=== PATIENT | male | born 1975 | race Caucasian/White ===

== ENCOUNTER 2019-04-06 13:09 | Inpatient (IN) ==
[2019-04-06] MEDS ORDERED: 0.9 % Sodium Chloride 1,000 ML IVC ONE (13:20)
[2019-04-06] MEDS ORDERED: 0.9 % Sodium Chloride 1,000 ML ONE ×3 (13:22→13:42)
[2019-04-06] MEDS ORDERED: *HR* Heparin 5,000 UNIT/ML VIAL ONE (13:22)
[2019-04-06] MEDS ORDERED: *HR* Ticagrelor 90 MG TABLET ONE ×2 (13:22→14:21)
[2019-04-06] MEDS ORDERED: Aspirin 81 MG TAB.CHEW ONE (13:22)
[2019-04-06] MEDS: Aspirin 81 MG TAB.CHEW PO ONE ×2 (13:24→13:34)
[2019-04-06] MEDS ORDERED: *HR* Heparin 5,000 UNIT/ML VIAL IVP ONE (13:27)
[2019-04-06] MEDS: Nitroglycerin 0.4 MG TAB.SUBL SL PRN ×2 (13:27→13:38)
[2019-04-06] MEDS ORDERED: *HR* Heparin 5,000 UNIT/ML VIAL IVP PRN ×2 (13:27)
[2019-04-06] MEDS ORDERED: Heparin 25,000 UNIT/250 ML D5W 25,000 UNIT/250 ML IV.SOLN IVC SCH (13:30)
[2019-04-06] MEDS ORDERED: Heparin 1,000 UNITS/500 mL 500 ML ONE (13:33)
[2019-04-06] MEDS ORDERED: *HR* Heparin 10,000 UNIT/10 ML VIAL ONE ×2 (13:33→14:08)
[2019-04-06] MEDS ORDERED: ISOVUE-370 200 ML INFUS..BTL ONE (13:33)
[2019-04-06] MEDS ORDERED: Nitroglycerin 1,000 MCG/10 ML VIAL IV ONE (13:34)
[2019-04-06 13:35] LABS: Basophils # 0.1 K/mcL (0.0-0.2); Basophils % 0.6 %; Eosinophils # 0.3 K/mcL (0.0-0.6); Eosinophils % 3.1 %; Hematocrit 51.4 % (37.5-50.1); Hemoglobin 17.8 g/dL (12.9-16.9); Immature Granulocytes % 0.6 % (0-4); Lymphocytes # 2.6 K/mcL (0.6-4.6); Lymphocytes % 26.6 %; Mean Corpuscular HGB Conc 34.6 g/dL (31.6-35.5); Mean Corpuscular Hemoglobin 29.5 pg (28.0-33.3); Mean Corpuscular Volume 85.1 fL (83.0-100.0); Mean Platelet Volume 9.9 fL (9.4-12.4); Monocytes # 0.9 K/mcL (0.0-1.3); Monocytes % 9.3 %; Neutrophils # 5.9 K/mcL (1.6-8.9); Platelet Count 228 K/mcL (140-400); Red Blood Count 6.04 M/mcL (4.19-5.50); Red Cell Distribution Width 13.3 % (11.5-14.5); Segmented Neutrophils % 59.8 %; White Blood Count 9.8 K/mcL (4.3-11.1)
[2019-04-06 13:41] LABS: INR 0.9; Prothrombin Time 10.6 Seconds (9.4-12.1)
[2019-04-06 13:42] LABS: Activated Partial Thrombo Time 31.8 Seconds (26.0-36.0)
[2019-04-06] MEDS ORDERED: Verapamil 5 MG/2 ML VIAL ONE (13:42)
[2019-04-06] MEDS ORDERED: *HR* Midazolam HCl 2 MG/2 ML VIAL ONE (13:50)
[2019-04-06] MEDS ORDERED: *HR* FentaNYL (PF) 100 MCG/2 ML VIAL ONE (13:50)
[2019-04-06 13:56] LABS: D-Dimer < 215 ng/mLFEU (0-500)
[2019-04-06 13:59] LABS: BUN/Creatinine Ratio 12 (6-26); Blood Urea Nitrogen 11 mg/dL (6-20); Calcium 10.4 mg/dL (8.6-10.3); Carbon Dioxide 28 mEq/L (23-29); Chloride 102 mEq/L (98-107); Glucose 166 mg/dL (70-105); Magnesium 1.9 mg/dL (1.6-2.6); Osmolality,Calculated 289 (280-300); Potassium 4.1 mEq/L (3.5-5.1); Sodium 138 mEq/L (136-145); eGFR For African Americans > 60 (> 60); eGFR For Non-African Americans > 60 (> 60)
[2019-04-06 14:03] LABS: Troponin I 0.59 ng/mL (< 0.04)
[2019-04-06] MEDS ORDERED: *HR* Adenosine 6 MG/2 ML VIAL IVP ONE (14:36)
[2019-04-06] MEDS ORDERED: niCARdipine 20 MG/200 ML MLS IVC ONE (14:37)
[2019-04-06] MEDS ORDERED: Ondansetron 4 MG/2 ML VIAL IVP PRN (15:29)
[2019-04-06] MEDS ORDERED: D5% in Water 1,000 ML IVC PRN (15:50)
[2019-04-06] MEDS ORDERED: *HR* Dextrose 50 % in Water (Syg) 50 ML SYRINGE IVP PRN (15:50)
[2019-04-06] MEDS ORDERED: Dextrose Gel 15 GM/37.5 ML TUBE PO PRN ×2 (15:50)
[2019-04-06] MEDS: Insulin LISPRO 300 UNITS/3 ML VIAL SQ SCH (16:09)
[2019-04-06] MEDS ORDERED: Insulin LISPRO 300 UNITS/3 ML VIAL SQ SCH (21:00)
[2019-04-06] MEDS: *HR* Ticagrelor 90 MG TABLET PO SCH (21:05)
[2019-04-07 05:00] LABS: Basophils % 0.4 %; Eosinophils # 0.3 K/mcL (0.0-0.6); Eosinophils % 3.5 %; Hematocrit 50.4 % (37.5-50.1); Hemoglobin 17.1 g/dL (12.9-16.9); Immature Granulocytes % 0.3 % (0-4); Lymphocytes # 1.9 K/mcL (0.6-4.6); Lymphocytes % 19.9 %; Mean Corpuscular HGB Conc 33.9 g/dL (31.6-35.5); Mean Corpuscular Hemoglobin 29.7 pg (28.0-33.3); Mean Corpuscular Volume 87.7 fL (83.0-100.0); Mean Platelet Volume 10.2 fL (9.4-12.4); Monocytes % 10.3 %; Neutrophils # 6.4 K/mcL (1.6-8.9); Platelet Count 189 K/mcL (140-400); Red Blood Count 5.75 M/mcL (4.19-5.50); Red Cell Distribution Width 13.4 % (11.5-14.5); Segmented Neutrophils % 65.6 %; White Blood Count 9.8 K/mcL (4.3-11.1)
[2019-04-07 05:21] LABS: Troponin I 8.23 ng/mL (< 0.04)
[2019-04-07 05:27] LABS: BUN/Creatinine Ratio 12 (6-26); Blood Urea Nitrogen 9 mg/dL (6-20); Calcium 9.7 mg/dL (8.6-10.3); Carbon Dioxide 22 mEq/L (23-29); Chloride 103 mEq/L (98-107); Glucose 124 mg/dL (70-105); Magnesium 1.7 mg/dL (1.6-2.6); Osmolality,Calculated 282 (280-300); Potassium 3.9 mEq/L (3.5-5.1); Sodium 136 mEq/L (136-145); eGFR For African Americans > 60 (> 60); eGFR For Non-African Americans > 60 (> 60)
[2019-04-07] MEDS: Insulin LISPRO 300 UNITS/3 ML VIAL SQ SCH ×3 (07:53→17:12)
[2019-04-07] MEDS ORDERED: Aspirin 81 MG TAB.CHEW PO SCH (09:00)
[2019-04-07] MEDS: *HR* Ticagrelor 90 MG TABLET PO SCH ×2 (09:26→20:36)
[2019-04-07] MEDS ORDERED: D5% in Water 1,000 ML IVC PRN (09:31)
[2019-04-07] MEDS ORDERED: Nitroglycerin 0.4 MG TAB.SUBL SL PRN (09:31)
[2019-04-07] MEDS ORDERED: Ondansetron 4 MG/2 ML VIAL IVP PRN (09:31)
[2019-04-07] MEDS ORDERED: Loratadine 10 MG TABLET PO PRN (09:31)
[2019-04-07] MEDS ORDERED: *HR* Dextrose 50 % in Water (Syg) 50 ML SYRINGE IVP PRN (09:31)
[2019-04-07] MEDS ORDERED: Dextrose Gel 15 GM/37.5 ML TUBE PO PRN ×2 (09:31)
[2019-04-07] MEDS ORDERED: Insulin LISPRO 300 UNITS/3 ML VIAL SQ SCH (21:00)
[2019-04-08] MEDS: Insulin LISPRO 300 UNITS/3 ML VIAL SQ SCH ×2 (08:07→12:17)
[2019-04-08] MEDS: *HR* Ticagrelor 90 MG TABLET PO SCH (08:10)
[2019-04-08] MEDS ORDERED: Aspirin 81 MG TAB.CHEW PO SCH (09:00)
[2019-04-08 11:59] VITALS: BP 147/89
== END 2019-04-08 14:01 | disposition home or self-care (01) | DRG 247 ==
LOC: ICNU 13:09 → EMEROOARM 13:09 → OBSVTOIN 13:49 → ICNU 13:52 → 2NNU 04-07 11:49
PROVIDERS: ADMIT Internal Medicine Interventional Cardiology; ATTEND Internal Medicine Interventional Cardiology

== ENCOUNTER 2020-11-12 11:03 | Observation (INO) ==
[2020-11-12 12:06] LABS: Basophils # 0.1 K/mcL (0.0-0.2); Basophils % 0.8 %; Eosinophils # 0.2 K/mcL (0.0-0.6); Eosinophils % 2.2 %; Hematocrit 54.2 % (37.5-50.1); Hemoglobin 18.9 g/dL (12.9-16.9); Immature Granulocytes % 0.5 % (0-4); Lymphocytes # 2.2 K/mcL (0.6-4.6); Lymphocytes % 25.8 %; Mean Corpuscular HGB Conc 34.9 g/dL (31.6-35.5); Mean Corpuscular Hemoglobin 29.8 pg (28.0-33.3); Mean Corpuscular Volume 85.5 fL (83.0-100.0); Monocytes # 0.9 K/mcL (0.0-1.3); Monocytes % 10.8 %; Neutrophils # 5.2 K/mcL (1.6-8.9); Platelet Count 228 K/mcL (140-400); Red Blood Count 6.34 M/mcL (4.19-5.50); Segmented Neutrophils % 59.9 %; White Blood Count 8.7 K/mcL (4.3-11.1)
[2020-11-12 12:14] LABS: Prothrombin Time 12.1 Seconds (9.4-12.1)
[2020-11-12 12:17] LABS: Activated Partial Thrombo Time 32.8 Seconds (26.0-36.0)
[2020-11-12 12:23] LABS: BUN/Creatinine Ratio 13 (6-26); Blood Urea Nitrogen 13 mg/dL (6-20); Calcium 10.3 mg/dL (8.6-10.3); Carbon Dioxide 28 mEq/L (23-29); Chloride 98 mEq/L (98-107); Glucose 150 mg/dL (70-105); Osmolality,Calculated 281 (280-300); Potassium 4.1 mEq/L (3.5-5.1); Sodium 134 mEq/L (136-145); Troponin I < 0.03 ng/mL (< 0.04); eGFR For African Americans > 60 (> 60); eGFR For Non-African Americans > 60 (> 60)
[2020-11-12] MEDS ORDERED: Acetaminophen 325 MG TABLET PO STA (14:47)
[2020-11-12] MEDS ORDERED: Nitroglycerin 0.4 MG TAB.SUBL SL ONE (14:58)
[2020-11-12] MEDS ORDERED: Nitroglycerin 0.4 MG TAB.SUBL SL PRN (15:03)
[2020-11-12] MEDS ORDERED: Naloxone 0.4 MG/ML INJ IVP PRN (16:22)
[2020-11-12] MEDS ORDERED: Ondansetron 4 MG/2 ML VIAL IVP PRN (16:22)
[2020-11-12] MEDS ORDERED: D5% in Water 1,000 ML IVC PRN (17:13)
[2020-11-12] MEDS ORDERED: Dextrose Gel 15 GM/37.5 ML TUBE PO PRN ×2 (17:13)
[2020-11-12] MEDS ORDERED: *HR* Dextrose 50 % in Water (Vial) 50 ML VIAL IVP PRN (17:13)
[2020-11-12] MEDS ORDERED: Melatonin 3 MG TABLET PO PRN (21:00)
[2020-11-12] MEDS: Insulin LISPRO 300 UNITS/3 ML VIAL SUBQ SCH (22:48)
[2020-11-12] MEDS: *HR* Ticagrelor 90 MG TABLET PO SCH (22:57)
[2020-11-13] MEDS ORDERED: *HR* Enoxaparin 40 MG/0.4 ML SYRINGE SQ SCH (06:00)
[2020-11-13] MEDS ORDERED: Regadenoson 0.4 MG/5 ML SYRINGE IVP ONE (06:15)
[2020-11-13 07:11] LABS: Basophils # 0.1 K/mcL (0.0-0.2); Basophils % 0.8 %; Eosinophils # 0.2 K/mcL (0.0-0.6); Eosinophils % 2.1 %; Hematocrit 53.4 % (37.5-50.1); Hemoglobin 18.2 g/dL (12.9-16.9); Immature Granulocytes % 0.5 % (0-4); Lymphocytes # 1.8 K/mcL (0.6-4.6); Lymphocytes % 23.1 %; Mean Corpuscular HGB Conc 34.1 g/dL (31.6-35.5); Mean Corpuscular Hemoglobin 28.9 pg (28.0-33.3); Mean Corpuscular Volume 84.9 fL (83.0-100.0); Mean Platelet Volume 9.8 fL (9.4-12.4); Monocytes # 0.9 K/mcL (0.0-1.3); Monocytes % 11.2 %; Neutrophils # 4.9 K/mcL (1.6-8.9); Platelet Count 212 K/mcL (140-400); Red Blood Count 6.29 M/mcL (4.19-5.50); Segmented Neutrophils % 62.3 %; White Blood Count 7.9 K/mcL (4.3-11.1)
[2020-11-13 07:33] LABS: BUN/Creatinine Ratio 15 (6-26); Blood Urea Nitrogen 13 mg/dL (6-20); Calcium 9.9 mg/dL (8.6-10.3); Carbon Dioxide 26 mEq/L (23-29); Chloride 102 mEq/L (98-107); Chol/HDL Ratio 4.8 (0-4.9); Cholesterol 149 mg/dL (< 200); Glucose 146 mg/dL (70-105); HDL Cholesterol 31 mg/dL (40-59); LDL Cholesterol,Calculated 82 mg/dL (< 100); Osmolality,Calculated 283 (280-300); Potassium 4.3 mEq/L (3.5-5.1); Sodium 135 mEq/L (136-145); Triglycerides 179 mg/dL (< 150); eGFR For African Americans > 60 (> 60); eGFR For Non-African Americans > 60 (> 60)
[2020-11-13] MEDS ORDERED: Aspirin Enteric Coated 81 MG Tablet PO SCH (09:00)
[2020-11-13] MEDS: *HR* Ticagrelor 90 MG TABLET PO SCH (10:03)
[2020-11-13 10:10] LABS: Estimated Average Glucose 171 mg/dl; Hemoglobin A1C 7.6 %
[2020-11-13] MEDS: Insulin LISPRO 300 UNITS/3 ML VIAL SUBQ SCH ×3 (10:12→16:33)
[2020-11-13 10:32] VITALS: TEMP 97.6
[2020-11-13] MEDS ORDERED: Isosorbide MONOnitrate (24 HR) 30 MG TAB.ER.24H PO SCH (12:30)
[2020-11-13 16:22] VITALS: BP 112/64; PULSE 56; O2SAT 94
== END 2020-11-13 17:30 | disposition home or self-care (01) ==
LOC: SUATTDRO → CDU 11:03 → EMEROOARM 11:03 → SUATTDRO 21:21 → CDU 22:52 → 2ANU 11-13 15:26
PROVIDERS: ADMIT Hospitalist; ATTEND Hospitalist